=== PATIENT | female | born 1945 | race Caucasian/White ===

== ENCOUNTER 2017-11-10 11:22 | Day surgery (SDC) | payer OTHER, MEDICARE ==
[2017-11-10] MEDS: MOXIFLOXACIN 0.5% 3 ML OPH OPER (13:39)
[2017-11-10] MEDS: NEPAFENAC 0.1% 3 ML OPH OPER (13:41)
[2017-11-10] MEDS: CYCLOPENTOLATE 2% 2 ML OPH OPER (13:42)
[2017-11-10] MEDS: PHENYLephrine 10% 5 ML OPH OPER (13:42)
[2017-11-10] MEDS ORDERED: LIDOCAINE 2% (SDV) 5 ML INJ (14:28)
[2017-11-10] MEDS ORDERED: PROPOFOL 20 ML (14:28)
[2017-11-10] MEDS ORDERED: EPHEDrine SULFATE 50 MG/5 ML SYG IV (14:30)
[2017-11-10] MEDS ORDERED: LABETALOL HCL 20MG INJ IV (14:30)
[2017-11-10] MEDS ORDERED: OXYCODONE/ACETAMINOPHEN (5/325) TAB PO ×2 (14:30)
[2017-11-10] MEDS ORDERED: MEPERIDINE 25 MG INJ IV (14:30)
[2017-11-10] MEDS ORDERED: ONDANSETRON 4 MG INJ IV (14:30)
[2017-11-10] MEDS ORDERED: FENTAnyl 50 MCG/ML VIAL IV (14:30)
[2017-11-10] MEDS ORDERED: hydrALAzine 20 MG INJ IV (14:30)
[2017-11-10] MEDS ORDERED: MIDAZOLAM 1 MG/ML 2 ML INJ IV (14:30)
[2017-11-10] MEDS ORDERED: DIPHENHYDRAMINE 50 MG INJ IV (14:30)
[2017-11-10] MEDS ORDERED: METOCLOPRAMIDE 10 MG INJ IV (14:30)
[2017-11-10] MEDS: CARBACHOL 0.01% 1.5 ML OPH INJ RIGHT EYE (16:00)
[2017-11-10] MEDS ORDERED: ONDANSETRON 4 MG INJ (17:13)
[2017-11-10] MEDS ORDERED: METOCLOPRAMIDE 10 MG INJ (17:13)
[2017-11-10] MEDS ORDERED: CARBACHOL 0.01% 1.5 ML OPH INJ (18:05)
[2017-11-10] MEDS: TIMOLOL 0.5% 5 ML OPH RIGHT EYE (18:10)
[2017-11-10] MEDS ORDERED: ATROPINE 1 MG/10 ML SYRINGE (18:26)
[2017-11-10] MEDS: FENTAnyl 50 MCG/ML VIAL IV ×2 (19:40→19:54)
== END 2017-11-10 20:27 | disposition home or self-care (01) ==
LOC: SDS 11:22
DX: H25.11 Age-related nuclear cataract, right eye (principal)
CPT/HCPCS: 66984